=== PATIENT | female | born 1975 | race Caucasian/White ===

== ENCOUNTER 2017-12-19 12:28 | Emergency (ER) | payer MEDICAID, SELFPAY ==
[2017-12-19 12:29] VITALS: BP 123/70; PULSE 85; RESP 18; TEMP 36.6; O2SAT 98; BMI 28.2
[2017-12-19] MEDS: Ondansetron 4 MG/2 ML Vial IV (13:39)
[2017-12-19] MEDS: 0.9% Normal Saline 1,000 ML 1000 ML IV (13:39)
[2017-12-19 13:50] LABS: Absolute Lymphocyte Count 2.38 X10^3/ul (0.83-4.51); Absolute Neutrophil Count 3.8 X10^3/uL (2.0-7.7); Basophil# 0.02 X10^3/uL; Basophil% 0.3 % (0-1); Eosinophil# 0.38 X10^3/uL; Eosinophils% 5.2 % (0-5); Hematocrit 40.2 % (37-47); Hemoglobin 13.4 g/dl (12.0-15.0); Lymphocyte # 2.38 X10^3/ul (4.0); Lymphocyte % 32.4 % (19-41); Mean Corp Hgb Conc 33.3 g/gl (32-36); Mean Corpuscular Volume 90.1 fL (81-99); Mean Platelet Vol. 9.2 fl (6.2-12.0); Monocyte# 0.75 X10^3/uL; Monocyte% 10.2 % (0-10); Neutrophil # 3.81 X10^3/uL (2.7-7.7); Neutrophil % 51.9 % (47-70); POSITIVE COUNT NO; POSITIVE DIFFERENTIAL NO; POSITIVE MORPHOLOGY NO; Platelet Count 220 K/mm3 (150-450); RBC Distribution Width SD 42.3 fl (35.1-43.9); Red Blood Count 4.46 M/mm3 (4.2-5.4); White Blood Count 7.3 K/mm3 (4.4-11.0)
[2017-12-19 14:07] LABS: AST(SGOT) 14 U/L (15-37); Alanine Aminotransfer ALT/SGPT 28 U/L (13-56); Albumin, Serum 3.4 g/dL (3.2-5.0); Alkaline Phosphatase 61 U/L (45-117); Anion Gap 7 (5-15); BUN 18 mg/dL (7-18); BUN/Creat Ratio 19.2 RATIO (10-20); Calcium,Total 8.6 mg/dL (8.5-10.1); Chloride 105 mmol/L (98-107); Creatinine, Serum 0.94 mg/dL (0.55-1.02); EST Glomerular Filtration Rate 70 mL/min (>60); Est Glom Filt Rate - Afr Amer 84 mL/min (>60); Estimated Creatinine Clearance 72.99 ml/min; Globulin 3.4 g/dL (2.2-4.2); Glucose 113 mg/dL (74-106); Lipase 243 U/L (73-393); Potassium 3.7 mmol/L (3.5-5.1); Protein, Total 6.8 g/dL (6.4-8.2); Sodium Level 141 mmol/L (136-145)
[2017-12-19] MEDS: Mag Hydrox/Al Hydrox/Simeth 30 ML UDC PO (14:46)
--- NOTE | 2017-12-19 15:47 | ED.VISSUMM ---
- ER Visit Summary Date of Service: 12/19/17 Chief Complaint: Epigastric pain, nausea vomiting History of Present Illness: The patient is a 42 F with above complaints for the past 3 days. No fever or chills no diarrhea or constipation. She has no lower abdominal pain. Pain does not radiate into her back. No chest pain shortness of breath. Pain is mild to moderate. She did notice slightly dark stools today. Physical Examination: Not appear in acute distress. Moist mucous membranes, no obvious facial deformity Normal conjunctiva, non-pale No C-spine tenderness supple neck. Regular rate and rhythm without any obvious murmurs Clear lungs bilaterally speaking in full sentences without any obvious respiratory distress Abdomen soft with slight epigastric pain. No right upper quadrant pain, negative Alcaraz's. No lower abdominal pain. Moves all extremities without any difficulty or pain. Skin does not show any obvious rashes or lesions, no trauma. Alert oriented ?3 with no gross focal deficit Emergency Department Course and Treatment: She had an unremarkable workup. She improved after GI cocktail. She refused a rectal exam and did not want to give me a stool sample, I told her I cannot tell her if she had any kind of bleeding, however her symptoms have improved and she feels better. Regardless I did tell her that if she feels lightheaded, her stools persist to be black she needs to return right away. I believe this is likely gastritis, this could be an ulcer. She will need GI follow-up. She will be discharged with proton pump inhibitors and symptomatic treatment Disposition: [Discharge stable condition] Impression: [Epigastric pain] This note was generated with [employer] dictation software. It may contain incorrect words, spelling, and punctuation that were not noted in review of the chart prior to signing ED Disposition - Plan for ED Patient: Disposition: Home or Assisted Living Chief Complaint: GI Bleed Instructions: ED Epigastric Pain [facility] Prescriptions: Ondansetron [Zofran Odt] 4 mg PO Q8H PRN PRN #10 tab PRN Reason: Nausea Omeprazole 20 mg PO BID #60 tablet. Sucralfate [Carafate] 1 gm PO 4X/DAY #60 tab Referrals: Morsi Kenny MD [Primary Care Provider] - 3-5 Days
== END 2017-12-19 16:28 | disposition home or self-care (01) ==
PROVIDERS: Emergency Provider Emergency Medicine; Family Provider Family Medicine; PCP Family Medicine
DX: R10.13 Epigastric pain (principal); R53.1 Weakness; R10.9 Unspecified abdominal pain; Z72.0 Tobacco use
CPT/HCPCS: 80053; 83690; 85025; 96361; 96374; 99282; J7030; A4216; J2405

== ENCOUNTER 2018-11-24 18:21 | Emergency (ER) | payer MEDICAID, SELFPAY ==
[2018-11-24 18:22] VITALS: BP 130/66; PULSE 85; RESP 17; TEMP 36.8; O2SAT 95; BMI 29.7
[2018-11-24 18:30] VITALS: BP 130/66; PULSE 85; RESP 17; TEMP 36.8; O2SAT 95
--- NOTE | 2018-11-24 18:49 | ED.VIS.GEN ---
History of Present Illness Chief Complaint: Abscess Informant: Patient Onset: Yesterday Current Severity: Moderate Maximum Severity: Moderate Narrative: Patient presents with a right buttock abscess since yesterday. She denies any fever chills cough or congestion. She denies dysuria. Denies diarrhea or constipation. She was treated medically for a similar abscess about a month ago but this is much worse. Past Medical History - Allergies and Home Meds Allergies/Adverse Reactions: Allergies Penicillins Allergy (Verified 11/24/18 18:21) Rash Primary Care Physician: Moris Kenny MD [Primary Care Provider] - Past Medical History: None Smoking Status: Current every day smoker Review of Systems General: Denies: Fever Gastrointestinal: Denies: Nausea Skin: Reports: Rash, Abscess Neurological: Denies: Weakness, Parasthesia Hematologic: Denies: Easy bleeding Physical Exam Vital Signs/Narrative: Vital Signs Temp Pulse Resp BP Pulse Ox 11/24/18 18:30 98.3 F 85 17 130/66 H 95 11/24/18 18:22 98.3 F 85 17 130/66 H 95 General: Well nourished, Well developed ENT: Moist mucous membranes Cardiovascular: Regular rate Respiratory: No distress Abdomen: Soft, Nontender Rectal: - - 3 cm abscess present. There is about a 7 cm surrounding cellulitis Extremities: Nontender, No edema Skin: Rash, - - As above Neurological: Normal Sensation Diagnostic/Tx/Re-eval - Medical Decision Making Abscess was drained. I will place the patient on antibiotics and given analgesics. Disposition discharge stable condition Procedures Procedure(s): Incision and drainage: 2% lidocaine, Morgan-Clens, #11 blade was used. Patient tolerated procedure well. I broke all the loculations and irrigated the wound. ED Disposition - Plan for ED Patient: Disposition: Home or Assisted Living Diagnosis: Abscess Instructions: ABSCESS, Incision and Drainage Prescriptions: Smz/Tmp Ds [Bactrim Ds] 1 tab PO BID #14 tab Prescription Printed Cephalexin [Keflex] 500 mg PO Q6 #40 cap Prescription Printed Oxycodone HCl/Acetaminophen [Percocet 5/325] 1 tab PO Q6H PRN PRN 3 Days #12 tab PRN Reason: Pain Prescription Printed Referrals: Moris Kenny MD [Primary Care Provider] - 3-5 Days
[2018-11-24] MEDS: Cephalexin 250 MG Capsule 500 MG PO (19:20)
[2018-11-24] MEDS: oxyCODONE 5 MG Tablet PO (19:20)
[2018-11-24] MEDS: Smz/Tmp Ds Tablet 1 TABLET PO (19:20)
[2018-11-24 19:22] VITALS: BP 119/72; PULSE 78; RESP 15; O2SAT 99
== END 2018-11-24 19:25 | disposition home or self-care (01) ==
LOC: ED 19:00
PROVIDERS: Emergency Provider Emergency Medicine; Family Provider Family Medicine; PCP Family Medicine
DX: L02.31 Cutaneous abscess of buttock (principal); F17.200 Nicotine dependence, unspecified, uncomplicated; Z88.0 Allergy status to penicillin
CPT/HCPCS: 10060; 99283

== ENCOUNTER 2023-07-01 08:03 | Emergency (ER) | payer MEDICAID, SELFPAY ==
[2023-07-01 08:04] VITALS: BP 142/87; PULSE 64; RESP 16; TEMP 35.9; O2SAT 99; BMI 29.7
--- NOTE | 2023-07-01 08:53 | EKG12_ITS ---
Test Reason : Blood Pressure : / mmHG Vent. Rate : 052 BPM Atrial Rate : 052 BPM P-R Int : 140 ms QRS Dur : 084 ms QT Int : 422 ms P-R-T Axes : 064 056 044 degrees QTc Int : 392 ms Sinus bradycardia Otherwise normal ECG Confirmed by Sammy Mock ([id number]), editor & co founder LATRICIA ANGULO ([id number]) on 07/04/2023 1:59:45 PM Referred By: Confirmed By:Sammy Mock
--- NOTE | 2023-07-01 08:53 | EX.ED.DYSGE1 ---
HPI History of Present Illness Chief Complaint: Edema Informant: patient Onset/Context/Timing Onset: Days Context: Gradual Onset Timing: Continuous Current Severity: Mild Maximum Severity: Mild Narrative Narrative: 47-year-old female past medical history of constipation. Says she feels swollen for the last week. States it is all over. Denies any trouble urinating. No fever or chills. No nausea or vomiting or diarrhea. No significant weight change. Prior similar symptoms: No Recent Illness/Hospitalization: No PFSH PFSH Home Medications levothyroxine 175 mcg tablet 112 mcg PO DAILY 01/24/14 [History Last Taken 01/24/14] cephalexin 500 mg capsule 500 mg PO Q6 #40 caps 11/24/18 [Rx Last Taken Unknown] duloxetine 20 mg capsule,delayed release 40 mg PO DAILY 11/24/18 [History Last Taken Unknown] sulfamethoxazole 800 mg-trimethoprim 160 mg tablet 1 tab PO BID #14 tabs 11/24/18 [Rx Last Taken Unknown] Allergy/AdvReac Type Severity Reaction Status Date / Time Penicillins Allergy Rash Verified 07/01/23 08:03 Social History Smoking Status: Current every day smoker tobacco type: e-cigarettes ROS ROS ED ROS Narrative Denies nausea, vomiting, diarrhea or fever. No dysuria. No shortness of breath. Review of Systems ROS Unobtainable: Denies due to encephalopathy Constitutional Constitutional ED: Denies chills or fever(s) Eyes Eyes: Denies blurry vision ENT ENT ED: Denies ear pain Cardiovascular Cardiovascular: Denies chest pain Respiratory/Chest Respiratory/Chest: Denies cough or dyspnea Gastrointestinal Gastrointestinal: Denies abdominal pain, diarrhea, melena, nausea or vomiting Genitourinary Genitourinary ED: Denies dysuria or hematuria Musculoskeletal Musculoskeletal: Denies arthralgias or back pain Integumentary Denies abscess or Abrasions Neurologic Neurologic: Denies headache(s) Psychiatric Psychiatric: Denies anxiety Endocrine Endocrinology: Denies cold intolerance Hematologic/Lymphatic Hematologic/Lymphatic: Reports none Allergic/Immunologic Allergic/Immunologic ED: Denies mouth swelling, tongue swelling or urticaria EXAM Physical Exam Narrative Exam Narrative: 47-year-old female no acute distress vital signs stable afebrile. Pulse ox 99% on room air no signs hypoxia. H EENT exam normal. Neck nontender no JVD. Lungs clear to auscultation bilateral. Heart regular rhythm rate about 60 no murmur. Chest wall and ribs nontender. Abdomen soft nontender. Moving all 4 extremities. 5 out of 5 telephone clerk strength. Nontender. No edema. Neurologically she is awake and alert no focal motor deficits. Benign normal exam. Const Vital Signs: 07/01/23 08:04 07/01/23 08:10 07/01/23 10:09 Temperature 96.6 F L 97.2 F L Temperature Source Temporal Oral Pulse Rate 64 71 Respiratory Rate 16 15 Respiratory Effort Normal Non-Labored Respiratory Pattern Normal Blood Pressure 142/87 H 124/76 H Blood Pressure Mean 105 92 Pulse Ox 99 98 Oxygen Delivery Method Room Air Room Air Positive well nourished and well developed; Negative for obese, cachectic, contractures or unkempt General Appearance ED: well developed and NAD; Negative for unkempt, cachectic, contractures, cyanotic, diaphoretic or pallor Nutritional Appearance: Negative for cachectic or obese HEENT Reports moist mucous membranes; Denies dry mucous membranes Negative for trauma or tenderness Mouth ED: No dry mucous membranes Mouth: No dry mucous membranes Eyes EOMs intact bilaterally General Eye ED: Negative for pale conjunctiva, scleral icterus or other Neck no lymphadenopathy, supple and no JVD General: Negative for tenderness or other Lymph Lymphatic: Negative for other Chest Wall inspection of chest normal and palpation of chest normal Chest: Negative for other Resp normal respiratory effort and clear to auscultation bilaterally Effort and Inspection: Negative for retractions, pain with movement or other Auscultation: Negative for rales, rhonchi or wheezes Cardio regular rate, regular rhythm, S1 normal heart sound, S2 normal heart sound and no murmurs Palpation: Negative for palpable S3 or palpable S4 Rate: Negative for bradycardia or tachycardic Rhythm: Negative for abnormal rhythm GI normal to inspection, nondistended, normoactive bowel sounds, non-tender, non-distended and no masses Inspection: Negative for abdominal distention Auscultation: normoactive bowel sounds Palpation: soft; Negative for tender, guarding or rebound tenderness present Back/Spine no CVA tenderness General Back: Negative for CVA tenderness Cervical Spine: Negative for cervical spine tenderness Thoracic Spine / Upper Back: Negative for thoracic spinal tenderness or paraspinal muscle tenderness Extremity normal to inspection General Extremety ED: Negative for edema or tenderness General Extremity: Negative for edema Neuro oriented x3 and CN's II-XII intact bilaterally Sensorium / Orientation: alert; Negative for orientation impaired, lethargic or stuporous Motor Exam: strength 5/5 throughout; Negative for general weakness or strength abnormal Psych mental status grossly normal Appearance: Negative for unkempt or other Attitude: No agitated Mood & Affect: Negative for depressed, anxious or tearful Skin no rashes or lesions noted, no wounds and skin turgor normal General Skin Exam: elasticity normal; Negative for jaundice or pallor Lesions: No lesion noted Rashes: No rashes noted Trauma: Negative for abrasion MDM MDM MDM Narrative Medical decision making narrative: 47-year-old female complaining of feels swollen but her exam is totally benign. There is no edema. No noted swelling. Heart and lung exams normal. Screening labs and EKG will be obtained. Repeat exam patient doing well at 11:08 PM. We went over test results. Schedule be discharged home with outpatient follow-up. Told her I do not do specific cause for her sensation of swelling because on exam she does not have any swelling and she has normal labs and normal kidney function. Lab Data Attestation: I reviewed the patient's lab results. Lab results narrative: CBC normal. White count of 6. H&H of 13 and 41. Platelets 282. BMP normal. Gap 7. Normal BUN and creatinine is 17 and 0.9. Glucose 107. Labs: Laboratory Results - last 24 hr 07/01/23 09:03 WBC 6.8 RBC 4.64 Hgb 13.8 Hct 41.2 MCV 88.8 MCH 29.7 MCHC 33.5 RDW Std Deviation 41.2 RDW Coeff of Nicole 12.7 Plt Count 282 MPV 9.5 Immature Gran % (Auto) 0.100 Neut % (Auto) 45.3 L Lymph % (Auto) 38.8 [place] % (Auto) 9.2 Eos % (Auto) 6.0 H Baso % (Auto) 0.6 Absolute Neuts (auto) 3.1 Absolute Lymphs (auto) 2.65 Nucleated RBC % 0 Sodium 140 Potassium 3.8 Chloride 106 Carbon Dioxide 27.0 Anion Gap 7 BUN 17 Creatinine 0.99 Estim Creat Clear Calc 76.64 Est GFR (MDRD) Af Amer 77 Est GFR (MDRD) Non-Af 64 BUN/Creatinine Ratio 17.2 Glucose 107 H Calcium 9.2 Rhythm Strip Rhythm Strip: Sinus bradycardia Rate: 52 Ectopy: None EKG Initial EKG: Attestation: I personally reviewed and interpreted this EKG as follows: Interpretation: Sinus Rhythm, No Acute Injury Pattern and Sinus Bradycardia Comments: Sinus bradycardia rate of 52 no acute signs of PR or ischemia. No dysrhythmia. Discharge Plan Triage Chief Complaint: Edema ED Provider: Robby Dumont Dx/Rx/DC Orders Clinical Impression: Malaise, Fatigue Prescriptions: No Action levothyroxine 175 MCG tablet 112 mcg PO DAILY duloxetine 20 MG capsule 40 mg PO DAILY sulfamethoxazole-trimethoprim 1 TABLET tablet 1 tab PO BID Qty: 14 0RF cephalexin 500 MG capsule 500 mg PO Q6 Qty: 40 0RF Primary Care Provider: Moris Kenny Referrals: Moris Kenny MD [Primary Care Provider] - 1 Week if not improving Activity Restrictions/Additional Instructions: Your exam and labs and EKG today were unremarkable. I do not have a specific cause for your symptoms. Call and follow-up your primary care physician if not improving. Disposition Disposition: Home, Self Care
[2023-07-01 09:17] LABS: Absolute Lymphocyte Count 2.65 X10^3/uL (0.83-4.51); Absolute Neutrophil Count 3.1 X10^3/uL (2.0-7.7); Basophil# 0.04 X10^3/uL; Basophil% 0.6 % (0-1); Eosinophil# 0.41 X10^3/uL; Hematocrit 41.2 % (37-47); Hemoglobin 13.8 g/dL (12.0-15.0); Lymphocyte # 2.65 X10^3/ul (0.83-4.51); Lymphocyte % 38.8 % (19-41); Mean Corp Hgb Conc 33.5 g/dL (32-36); Mean Corpuscular Hgb 29.7 pg (27.0-32.0); Mean Corpuscular Volume 88.8 fL (81-99); Mean Platelet Vol. 9.5 fl (6.2-12.0); Monocyte# 0.63 X10^3/uL; Monocyte% 9.2 % (0-10); NRBC Flagged by Analyzer 0 % (0-5); Neutrophil # 3.09 X10^3/uL (2.7-7.7); Neutrophil % 45.3 % (47-70); Platelet Count 282 K/mm3 (150-450); RBC Distribution Width CV 12.7 % (11.6-14.6); RBC Distribution Width SD 41.2 fl (35.1-43.9); Red Blood Count 4.64 M/mm3 (4.2-5.4); White Blood Count 6.8 K/mm3 (4.4-11.0)
[2023-07-01 09:31] LABS: Anion Gap 7 (5-15); BUN 17 mg/dL (7-18); BUN/Creat Ratio 17.2 RATIO (10-20); Calcium,Total 9.2 mg/dL (8.5-10.1); Chloride 106 mmol/L (98-107); Creatinine, Serum 0.99 mg/dL (0.55-1.02); EST Glomerular Filtration Rate 64 mL/min (>60); Est Glom Filt Rate - Afr Amer 77 mL/min (>60); Estimated Creatinine Clearance 76.64 ml/min; Glucose 107 mg/dL (74-106); Potassium 3.8 mmol/L (3.5-5.1); Sodium Level 140 mmol/L (136-145)
[2023-07-01 10:09] VITALS: BP 124/76; PULSE 71; RESP 15; TEMP 36.2; O2SAT 98
[2023-07-01 11:25] VITALS: BP 113/70; PULSE 52; RESP 16; TEMP 36.4; O2SAT 97
== END 2023-07-01 11:25 | disposition home or self-care (01) ==
PROVIDERS: Emergency Provider Emergency Medicine; PCP Family Medicine; Visit Provider Emergency Medicine
DX: R53.81 Other malaise (principal); F17.290 Nicotine dependence, other tobacco product, uncomplicated; R53.83 Other fatigue
CPT/HCPCS: 80048; 85025; 93005; 99283